=== PATIENT | male | born 1960 | race Caucasian/White ===

== ENCOUNTER → 2019-03-11 | Outpatient (REF) ==
[2019-03-12 10:07] LABS: RUBEOLA IgG ANTIBODY 57.8 AU/mL (Immune >29.9)
[2019-03-12 11:02] LABS: RUBELLA IgG QUALITATIVE IMMUNE (IMMUNE)
== END ==
LOC: M LAB 13:01
PROVIDERS: ATTEND Nurse Practitioner Adult Health
DX: Z02.89 Encounter for other administrative examinations (principal)

== ENCOUNTER 2020-11-14 17:16 | Emergency (ER) | payer BC ==
[~2020-11-14] VITALS: Ht 167.6 cm; Wt 139.6 kg
[2020-11-14] MEDS ORDERED: MECLIZINE 25 MG TABLET PO ONE (17:55)
--- NOTE | 2020-11-14 18:15 | REP ---
INDICATION: Syncope/near-syncope. COMPARISON: None TECHNIQUE: Portable AP chest with the patient sitting. FINDINGS: The lung slater are clear. Cardiac size is normal. The chidi, mediastinum and skeletal structures are unremarkable. IMPRESSION: Essentially negative portable chest <Electronically signed by Clarke Bustamante > 11/14/20 [id number]
--- NOTE | 2020-11-14 18:21 | REPVR ---
PROCEDURE INFORMATION: Exam: CT Head Without Contrast Exam date and time: 11/14/2020 6:14 PM Age: 60 years old Clinical indication: Syncope and collapse TECHNIQUE: Imaging protocol: Computed tomography of the head without contrast. Radiation optimization: All CT scans at this facility use at least one of these dose optimization techniques: automated exposure control; mA and/or kV adjustment per patient size (includes targeted exams where dose is matched to clinical indication); or iterative reconstruction. COMPARISON: No relevant prior studies available. FINDINGS: Brain: Normal. No hemorrhage. Unremarkable white matter. No mass effect. Cerebral ventricles: No ventriculomegaly. Bones/joints: Unremarkable. No acute fracture. Paranasal sinuses: Visualized sinuses are unremarkable. No fluid levels. Mastoid air cells: Visualized mastoid air cells are well aerated. Soft tissues: Unremarkable. IMPRESSION: No acute intracranial abnormality. Electronically signed by: Chin Jauregui On 11/14/2020 18:22:03 PM
[2020-11-14 18:43] VITALS: BP 188/92
[2020-11-14 19:21] LABS: BASO % 0.3 % (0.0-1.0); EOS % 0.3 % (0.0-3.0); HEMATOCRIT 49.1 % (42.0-52.0); HEMOGLOBIN 16.3 g/dl (13.5-17.5); LYMPH # 1.5 10^3/uL (1.5-5.0); LYMPH % 15.3 % (24.0-44.0); MEAN CORPUSCULAR HEMOGLOBIN 29.2 pg (27.0-33.0); MEAN CORPUSCULAR HGB CONC 33.2 g/dl (32.0-36.5); MONO # 0.5 10^3/uL (0.0-0.8); MONO % 5.4 % (2.0-8.0); NEUTROPHILS # 7.7 10^3/uL (1.5-8.5); NEUTROPHILS % 78.3 % (36.0-66.0); PLATELET COUNT, AUTOMATED 208 10^3/uL (150-450); RED BLOOD COUNT 5.58 10^6/uL (4.30-6.10); WHITE BLOOD COUNT 9.8 10^3/uL (4.0-10.0)
[2020-11-14 19:36] LABS: INR 1.03; PROTHROMBIN TIME 13.7 SECONDS (12.5-14.3)
[2020-11-14 19:56] LABS: BLOOD UREA NITROGEN 14 MG/DL (7-18); CARBON DIOXIDE LEVEL 32 MEQ/L (21-32); CHLORIDE LEVEL 103 MEQ/L (98-107); CK-MB VALUE MASS 1.9 NG/ML (<3.6); CPK CREATINE PHOSPHOKINASE 132 U/L (39-308); CREATININE FOR GFR 1.01 MG/DL (0.70-1.30); ETHYL ALCOHOL (ETHANOL) < 0.003 % (0.000-0.010); GLOMERULAR FILTRATION RATE > 60.0 (>49); GLUCOSE, FASTING 115 MG/DL (70-100); MAGNESIUM LEVEL 2.3 MG/DL (1.8-2.4); MB/CK RELATIVE INDEX 1.44 (< OR =4); POTASSIUM SERUM 4.4 MEQ/L (3.5-5.1); SODIUM LEVEL 139 MEQ/L (136-145); TROPONIN I < 0.02 NG/ML (< 0.10)
[2020-11-14] MEDS ORDERED: MECL1TAB31 PO (20:10)
[2020-11-14] MEDS ORDERED: LISI20TA33 PO (20:10)
[2020-11-14] MEDS ORDERED: HYDR12.55 PO (20:10)
[2020-11-14 20:30] VITALS: BP 189/103
== END 2020-11-14 21:15 | disposition home or self-care (01) ==
LOC: M ED 17:16
DX: H81.4 Vertigo of central origin (principal); I10 Essential (primary) hypertension; Z79.899 Other long term (current) drug therapy